=== PATIENT | male | born 1980 | race Caucasian/White ===

== ENCOUNTER → 2020-11-29 14:06 | Outpatient (BNVA) | payer SELFPAY | PROVIDERS: PCP Hospitalist; Visit Provider Physician Assistant | DX: Z02.79 Encounter for issue of other medical certificate (principal) ==

== ENCOUNTER 2021-11-12 11:44 | Outpatient (REF) | payer BC, SELFPAY ==
--- NOTE | ~2021-11-12 | XR_ITS ---
EXAMINATION: XR ankle LT 2V CLINICAL INFORMATION: Reason for Exam S99.912A - Unspecified injury of left ankle, initial encounter COMPARISON: None. TECHNIQUE: AP, lateral, and oblique views of the ankle XR/XR ankle LT 2V FINDINGS/IMPRESSION: * Marked soft tissue swelling overlying the lateral malleolus with 2 punctate osseous fragments adjacent to the lateral malleolus possibly reflecting sequelae of lateral malleolus avulsion fracture. * Moderate tibiotalar joint effusion. * Joint spaces are maintained without significant degenerative change.
== END 2021-11-12 11:45 | disposition home or self-care (01) ==
LOC: HO.HMGCX 11:44
PROVIDERS: PCP Hospitalist; Visit Provider Nurse Practitioner Acute Care
DX: S99.912A Unspecified injury of left ankle, initial encounter (principal); X58.XXXA Exposure to other specified factors, initial encounter; Y93.9 Activity, unspecified; Y92.9 Unspecified place or not applicable; Y99.9 Unspecified external cause status
CPT/HCPCS: 73600

== ENCOUNTER 2021-11-12 21:58 | Emergency (ER) | payer BC, SELFPAY ==
[2021-11-12 22:41] VITALS: BP 149/69; PULSE 61; RESP 17; TEMP 36.1; O2SAT 98; BMI 31.1
--- NOTE | 2021-11-12 23:21 | ED.LOWEXIN ---
HPI - Extremity Injury (Lower) General Chief Complaint: Extremity Injury, Lower Stated Complaint: left foot ligament damage and fractures Time Seen by Provider: 11/12/21 23:19 History of Present Illness HPI Narrative: 41-year-old male status post jumping off a trailer subsequently injuring left ankle. Patient was seen at urgent care at 12:30 today x-ray was done. Patient is sent in for further evaluation of fractures. No fever no chills no nausea no vomiting no head injury no neck injury no chest pain or shortness of breath no knee pain. Pain localized over the left ankle. Patient from home. He is on no medication. Related Data Home Medications Medication Instructions Recorded Confirmed No Known Home Meds 11/12/21 Previous Rx's Medication Instructions Recorded ibuprofen 800 mg tablet 800 mg PO Q8H PRN pain #20 tabs 11/12/21 Allergies Allergy/AdvReac Type Severity Reaction Status Date / Time ENVIRONMENTAL Allergy Unknown NONE Uncoded 11/12/21 11:32 Review of Systems Review of Systems: Positive pain to the left ankle No systemic complaints No fever no chills No head injury Yes all other systems are reviewed and are negative [facility] Past Medical History Attestation statement: The following information was validated with the patient. Social History Social History Advance Directives: No Physical Exam Vital Signs: Vital Signs: Last Vital Signs Temp 96.9 F 11/12/21 22:41 Pulse 61 11/12/21 22:41 Resp 17 11/12/21 22:41 BP 149/69 H 11/12/21 22:41 Pulse Ox 98 11/12/21 22:41 O2 Del Method 11/12/21 22:41 BMI result Body Mass Index 31.1 Appearance: Alert. Oriented X3. No acute distress. Eyes: Pupils equal, round and reactive to light. ENT: Pharynx normal. Neck: Normal inspection. Neck supple. No lymph nodes noted. No crepitus CVS: Normal heart rate and rhythm. Pulses normal. Normal S1 and S2 Respiratory: No respiratory distress. Breath sounds normal. No Wheezing. No rales Abdomen: Soft and nontender. No rigidity. No distention. good BS x4 Skin: Skin warm and dry. Normal skin color. Normal skin turgor. Extremities: Positive edema to the left ankle. Pain on palpation of the posterior aspect of the lateral malleolus. Distal pulses intact. Sensation intact. Skin intact. Moving toes perfectly. Neuro: Oriented X 3. No motor deficit. No sensory deficit. Moving all extermities. No slurred speech MDM - Extremity Injury (Lower) MDM Narrative Medical decision making narrative: Positive 2 small avulsion fracture noted in the ankle at the left malleolus. Will place patient in a boot. We will go ahead and give crutches for comfort. Follow-up with orthopedic on an outpatient basis. Patient's case discussed with orthopedics. Medical Records Attestation: I reviewed the patient's medical records. Lab Data Attestation: I reviewed the patient's lab results. Discharge Plan Discharge Clinical Impression: Ankle fracture Patient Disposition: Home, Self-Care Prescriptions: No Action No Known Home Meds ibuprofen 800 mg tablet 800 mg PO Q8H PRN (Reason: pain) Qty: 20 0RF Referrals: Asad Willingham MD [Physician] -
== END 2021-11-13 00:03 | disposition home or self-care (01) ==
PROVIDERS: Emergency Provider Emergency Medicine Emergency Medical Services
DX: S82.65XA Nondisplaced fracture of lateral malleolus of left fibula, initial encounter for closed fracture (principal); Y93.39 Activity, other involving climbing, rappelling and jumping off; Y93.9 Activity, unspecified; Y92.818 Other transport vehicle as the place of occurrence of the external cause; Y99.9 Unspecified external cause status
CPT/HCPCS: 99283; 99284

== ENCOUNTER 2021-12-12 07:09 | Outpatient (REF) | payer BC, SELFPAY ==
--- NOTE | ~2021-12-12 | XR_ITS ---
EXAMINATION: XR ANKLE, LEFT CLINICAL INFORMATION: Pain status-post injury. COMPARISON: Prior radiographs, most recently 11/12/2021. TECHNIQUE: AP, lateral, and mortise views of the left ankle. FINDINGS: Bony alignment and mineralization are normal. The ankle mortise is intact. There is no fracture, dislocation or left ankle joint effusion. Boehler's angle is normal. There is no calcaneal spur. There is soft tissue swelling, most pronounced anteriorly and laterally. No foreign body is seen. XR/XR ankle LT min 3V IMPRESSION: No fracture, dislocation or left ankle joint effusion is seen. There is soft tissue swelling, as detailed.
== END 2021-12-12 07:10 | disposition home or self-care (01) ==
LOC: HO.HOSX 07:09
PROVIDERS: Visit Provider Physician Assistant
DX: M25.572 Pain in left ankle and joints of left foot (principal)
CPT/HCPCS: 73610

== ENCOUNTER 2021-12-23 10:45 | Outpatient (RCR) | payer BC, SELFPAY ==
--- NOTE | 2021-12-23 15:46 | MHC.PT.EP ---
[facility] [place] Office [place] Office [place] Office [address]avar[address] [phone] F: [phone] F: [phone] F: [phone] F: [phone] Physical Therapy Plan of Care Date of Evaluation: Date of Surgery: Diagnosis: L ankle sprain. Assessment: Pt is a 41 y/o male referred to PT for eval and treat of L ankle sprain resulting in decreased tolerance and ability for walking long distances without brace, descending stairs, running and jogging, secondary to decreased L ankle ROm and strength, decreased balance, healing process for lateral ankle sprain, and pain. Pt is deemed an appropriate candidate to receive skilled PT in order to address his physical limitations to improve his functional ability. Frequency and Duration: The patient will be seen 2 x/wk x 8 wks. Short Term Goals: initiate HEP. Descends stairs w/o compensation. 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 In 8 weeks Pt will be able to jog 5 min with managed Sx; initial: unable. Improve L ankle eversion MMT by at least 1/2 MMT grade; initial: 4/5 with pain. Pt will be able to walk 1 mile without difficulty. Treatment Plan: Modalities to reduce pain, spasms and effusion. Manual therapy to restore motion and function. Therapeutic exercise to improve strength and flexibility. Neuromuscular re-education for posture and balance. Therapeutic activities to return to functional activities of daily living. Electronically signed by: Sean Zavala PT. Please sign and return to therapist. Thank you for your referral.
--- NOTE | 2022-01-25 15:46 | MHC.PT.DC ---
[facility] [place] Office [place] Office [place] Office [address] Marilou Chavarria [address] [phone] F: [phone] F: [phone] F: [phone] F: [phone] Physical Therapy Discharge Report Diagnosis: L ankle sprain. Date of Surgery: Date of Evaluation: 12/23/21 Date of Discharge: 01/25/22 Treatments to Date: 1 Cancellations to Date: No Shows to Date: Discharge Status: Patient Elected to Stop Visit Non-compliance Discharge Summary: Electronically signed by: Sean Zavala PT. Please sign and return to therapist. Thank you for your referral.
== END 2022-01-25 15:45 | disposition home or self-care (01) ==
LOC: HO.PTCHIC 10:45
PROVIDERS: PCP Hospitalist; Visit Provider Physician Assistant
DX: S93.402A Sprain of unspecified ligament of left ankle, initial encounter (principal)
CPT/HCPCS: 97110; 97161

== ENCOUNTER 2022-11-14 15:49 | Emergency (ER) | payer OTHER, SELFPAY ==
[2022-11-14 16:52] VITALS: BP 131/81; PULSE 68; RESP 18; TEMP 37; O2SAT 96; BMI 27.8
--- NOTE | 2022-11-14 16:52 | ED.UPPEXIN ---
HPI - Extremity Injury (Upper) General Chief Complaint: Wound/Laceration Stated Complaint: needs stitches, R thumb lac. sent from Time Seen by Provider: 11/14/22 18:50 Source: patient Mode of arrival: ambulatory Limitations: no limitations History of Present Illness HPI narrative: Patient is a right hand dominant 42-year-old male presenting to the emergency department with laceration to right thumb. He reports cutting his thumb on a metal barrel earlier today. He feels his tetanus is up to date as he is in the , but is unsure of date of last tetanus vaccine. He initially went to urgent care but was referred here. He denies any decreased range of motion to thumb, denies any numbness or tingling to thumb. He denies any other injuries. complaint: injury to: right Onset (ago): hour(s) Other Extremity Injury: right: fingers (thumb) Other injuries: none Handedness: right Place: home Severity: moderate Relieving factors: rest Exacerbating factors: movement of extremity Context: laceration Associated symptoms: denies other symptoms Treatments prior to arrival: bandage Related Data Previous Rx's Medication Instructions Recorded ibuprofen 800 mg tablet 800 mg PO Q8H PRN pain #20 tabs 11/12/21 cephalexin 500 mg capsule 500 mg PO QID #20 caps 11/14/22 Allergies Allergy/AdvReac Type Severity Reaction Status Date / Time ENVIRONMENTAL Allergy Unknown NONE Uncoded 12/12/21 09:35 Review of Systems Review of Systems: As per HPI. 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 Blood pressure normal. Heart rate normal. Respiratory rate normal. Temperature normal. Oxygen saturation normal. Const: General: cooperative, healthy appearing and no acute distress Orientation/consciousness: oriented to person, oriented to place, oriented to time and patient oriented x3 Limitations: no limitations HEENT: Head: Yes normocephalic and Yes atraumatic Ears: external ears normal General nose exam: Normal external nose present Face and sinus: Yes face symmetric Mouth: oropharynx normal and moist mucous membranes Throat: Yes uvula midline Eyes: Pupils: Equal, round and reactive pupils present Neck: Neck: Yes normal visual inspection and Yes supple Resp: Effort & Inspection: normal respiratory effort and able to speak in complete sentences Auscultation: clear to auscultation bilaterally Cardio: Rate: regular rate Rhythm: regular rhythm Heart sounds: S1 normal heart sound present and S2 normal heart sound present GI: Palpation (GI): Soft to palpation and nontender Auscultation: normoactive bowel sounds Skin: General skin exam: elasticity normal and turgor normal Trauma: laceration right palmar thumb linear, L-shaped, superficial, motor nerve function intact and sensation intact Neuro: General: oriented to person, oriented to place, oriented to time, patient oriented x3, moves all extremities, no focal motor deficits and CN's II-XI intact bilaterally Cranial nerves: Yes Equal, round and reactive pupils present Cognition (Neuro): normal cognition Extrem: General: Yes full ROM Right upper extremity: Extremity exam: right hand Details: neuromotor exam normal, neurosensory exam normal, tendon exam normal, tenderness Location: of the thumb Location: on the palmar aspect and at the IP joint, vascular exam Details: radial pulse present and normal capillary refill, normal ROM of fingers and laceration thumb palmar aspect mid Psych: Mental Status: mental status grossly normal Affect: normal affect Thought process: Normal thought process present Course Course Course Narrative: RME: 42yo M c/o laceration to R thumb s/p cleaning metal can around 11AM, was sent in by . TDap UTD 2cm laceration to R thumb MCP Will need repair Full HPI, ROS and PE to be performed by primary ED provider. Medications Administered Discontinued Medications Generic Name Dose Route Start Last Admin Trade Name Freq PRN Reason Stop Dose Admin Diphtheria/Tetanus/Acell Pertussis 0.5 ml 11/14/22 19:02 11/14/22 19:05 Diphth,Pertus(Acell),Tet Adult 0.5 Ml Syringe IM 11/14/22 19:03 0.5 ml .ONCE ONE Administration Lidocaine HCl 5 ml 11/14/22 18:55 11/14/22 19:04 Lidocaine Hcl 1 % Mpf 5 Ml Vial INFILTRATI 11/14/22 18:56 5 ml ONCE ONE Administration Medical Decision Making Medical Decision Making MDM Narrative: Patient is a right hand dominant 42-year-old male presenting to the emergency department with laceration to right thumb. On exam patient has full ROM, full strength and sensation to right thumb, 3cm L-shaped laceration to palmar aspect of right thumb over IP joint without significant bleeding. Laceration repaired as per procedure note and patient tolerated well. Bacitraicin and dressing applied following lac repair as well as splint. Return precautions discussed at bedside, suture removal in 10-14 days. Tetanus updated. Given contamination, prescribed prophylactic cephalexin. Differential Diagnosis Differential Diagnoses: The differential diagnosis associated with the presentation includes laceration, tendon injury, ligament injury External Record Review External record reviewed: Inpatient record, Office record and Outpatient record Prescription Management I considered prescription management with: Antibiotic Procedures Laceration Laceration 1: Site: hand Side (If applicable): right Size (cm): 3 Description: linear (L-shaped, over IP joint on palmar surface) Depth: simple, single layer Local Anesthetic: lidocaine 1% Amount of anesthesia used (mL): 3 Pre-repair: wound explored, irrigated extensively and deep structures intact Skin layer closed with: other (prolene) Size (cm): 4-0 Number of sutures: 8 Technique: simple, interrupted Discharge Plan Discharge Clinical Impression: Laceration of right thumb Patient Disposition: Home, Self-Care Instructions: Laceration (DC) Additional Instructions: You have been evaluated in the emergency department today for a laceration to your thumb. Your laceration was repaired in the emergency department with sutures. Please keep the area surrounding the laceration clean and dry and keep dressing in place for the next 24 hours. After that please change the dressing and assess the wound daily. Keep the area out of direct sunlight for the next 6 months to help prevent scarring. You should have the sutures removed in 10-14 days. You are being prescribed antibiotics to prevent infection. Please take the full course of antibiotics as prescribed. Your tetanus vaccine was updated in the ED today. If you develop fever, redness, swelling at the site of your laceration, or thick yellow drainage please come back to the ER for a wound check. Prescriptions: New cephalexin 500 mg capsule 500 mg PO QID Qty: 20 0RF No Action ibuprofen 800 mg tablet 800 mg PO Q8H PRN (Reason: pain) Qty: 20 0RF Interventions: ED Discharge Assessment Last Done: 11/14/22 20:07 Discharge Date/Time: 11/14/22 20:07
[2022-11-14 18:49] VITALS: BP 139/82; PULSE 64; RESP 18; O2SAT 98
[2022-11-14] MEDS: Lidocaine HCl 1 % MPF 5 ML VIAL INFILTRATI (19:04)
[2022-11-14] MEDS: Diphth,Pertus(ACell),Tet Adult 0.5 ML SYRINGE IM (19:05)
== END 2022-11-14 20:07 | disposition home or self-care (01) ==
LOC: HO.ED 19:57
PROVIDERS: Emergency Provider Emergency Medicine; PCP Hospitalist
DX: S61.011A Laceration without foreign body of right thumb without damage to nail, initial encounter (principal); S60.311A Abrasion of right thumb, initial encounter; W26.9XXA Contact with unspecified sharp object(s), initial encounter; Y93.9 Activity, unspecified; Y92.9 Unspecified place or not applicable; Y99.9 Unspecified external cause status; Z23 Encounter for immunization
CPT/HCPCS: 12042; 90471; 90715; 99284

== ENCOUNTER → 2022-12-15 10:44 | Outpatient (BNVA) | payer SELFPAY | PROVIDERS: PCP Hospitalist; Visit Provider Physician Assistant | DX: Z02.79 Encounter for issue of other medical certificate (principal) ==

== ENCOUNTER 2024-03-28 12:14 | Outpatient (AMB) | payer BC, SELFPAY ==
[2024-03-28 12:58] VITALS: BP 140/90; PULSE 80; O2SAT 98
--- NOTE | 2024-03-28 12:58 | AM.OFFWIN_ITS ---
Intake Vital Signs 03/28/24 12:58 Weight 230 lb BP 140/90 H Blood Pressure Location Rt brachial Position Sitting Pulse 80 Pulse Source Pulse Oximeter Pulse Oximetry (%) 98 Oxygen Delivery Method Room Air Intake Visit Reasons: EP Inner Blister RT middle finger Intake Note: Patient here for blood blister on middle finger on right hand Patient Tobacco Use Status: Never used Tobacco Allergies ENVIRONMENTAL Allergy (Unknown, Uncoded 03/28/24 12:59) NONE HPI HPI Comments History of Present Illness Details Patient is a 43-year-old male complaining of his right middle finger having a blood blister under the nail and on the opposite side of his finger. He tells me that last night he got it caught in between a green it counter top and a piece of metal. He tells me that it did not cut his finger but he has a very painful blood blister in both places. He has not done anything to try to make it better. 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 Review of Systems Const All systems reviewed & are unremarkable except as noted in HPI and below Physical Exam Vital Signs: Last Vital Signs Pulse 80 03/28/24 12:58 BP 140/90 H 03/28/24 12:58 Pulse Ox 98 03/28/24 12:58 Oxygen Delivery Method Room Air 03/28/24 12:58 Const General: cooperative, healthy appearing, comfortable, no acute distress and well developed Orientation/consciousness: patient oriented x3 Limitations: no limitations HEENT Head: Yes normal to inspection Ears: hearing grossly normal bilaterally General nose exam: Normal external nose present Face and sinus: Yes normal facial exam Eyes General: appearance normal, both eyes and all related structures Neck Neck: Yes normal visual inspection and Yes full ROM Resp Effort & Inspection: normal respiratory effort and able to speak in complete sentences Skin General skin exam: no rashes or lesions noted Neuro General: patient oriented x3 Extrem Other: Right middle finger has a blood blister underneath the nailbed and on the ventral side of the middle phalynx Office Procedures I&D Drain Details: Cleaned with alcohol wipe, performed right middle finger nail trephination with good success. applied bacitracin and a Band-Aid. [id number] of blood under nail All charges added?: Procedure code (CPT) selection complete Assessment & Plan Assessment & Plan (1) Blood blister: Code(s): T14.8XXA - Other injury of unspecified body region, initial encounter Plan: Performed nail trephination on right middle finger with success, applied bacitracin and a Band-Aid and gave wound care instructions. Advised the other blood blister would get reabsorbed over the coming days and weeks. Plan See above Coding Level of Care Code New Pt Level 4 (82878) Diagnoses Blood blister T14.8XXA CPT Codes I&D Drain - DRAIN 7: [id number] of blood under nail ([id number])
== END 2024-03-28 13:27 | disposition home or self-care (01) ==
PROVIDERS: PCP Hospitalist; Visit Provider Physician Assistant
DX: S60.031A Contusion of right middle finger without damage to nail, initial encounter (principal); T14.8XXA Other injury of unspecified body region, initial encounter

== ENCOUNTER → 2024-03-28 12:14 | Outpatient (BNVA) | payer BC, SELFPAY | PROVIDERS: PCP Hospitalist | DX: S60.422A Blister (nonthermal) of right middle finger, initial encounter (principal); W23.2XXA Caught, crushed, jammed or pinched between a moving and stationary object, initial encounter; Y93.9 Activity, unspecified; Y92.9 Unspecified place or not applicable; Y99.9 Unspecified external cause status | CPT/HCPCS: 11740 ==

== ENCOUNTER 2024-05-11 03:25 | Emergency (ER) | payer BC, SELFPAY ==
--- NOTE | ~2024-05-11 | XR_ITS ---
EXAMINATION: XR RIBS, LEFT CLINICAL INFORMATION: Pain COMPARISON: November 08, 2015. TECHNIQUE: 3 views of the left ribs were obtained. FINDINGS: Lungs are clear. No consolidation, pneumothorax, or pleural effusion. The cardiomediastinal silhouette and pulmonary vasculature are normal. Osseous structures are unremarkable. Ribs are intact. No fractures are identified. XR/XR ribs LT min 3V w CXR1V IMPRESSION: Unremarkable examination. Electronically signed by: Dante Frias MD 05/11/2024 06:40 AM [facility]
[2024-05-11 03:28] VITALS: BP 146/71; PULSE 71; RESP 20; TEMP 35.9; O2SAT 99; BMI 31.7
[2024-05-11] MEDS: Morphine Sulfate Immed Release 15 MG TABLET PO (05:06)
--- NOTE | 2024-05-11 06:15 | ED_ITS ---
HPI - General Adult General Chief complaint: General Medical Stated complaint: possible rib frac ? Time Seen by Provider: 05/11/24 04:46 Source: patient Mode of arrival: ambulatory Limitations: no limitations History of Present Illness ED Provider: HPI narrative: Patient otherwise healthy apparently 2 days ago was leaning to the back of his truck pressed his left lower ribs to the console since then been having pain in the lower ribs got worse today when he coughing feels increased pain on taking a deep breath no other injuries Related Data Previous Rx's ?Medication ?Instructions ?Recorded ibuprofen 800 mg tablet 800 mg PO Q8H PRN pain #20 tabs 11/12/21 ibuprofen 600 mg tablet 600 mg PO Q6H PRN fever or pain 05/11/24 #30 tabs oxycodone 5 mg tablet 5 mg PO Q6H PRN pain #20 tabs 05/11/24 Allergies Allergy/AdvReac Type Severity Reaction Status Date / Time ENVIRONMENTAL Allergy Unknown NONE Uncoded 05/11/24 03:30 Review of Systems Review of Systems: Yes all other systems are reviewed and are negative [facility] Social History Social History Patient Tobacco Use Status: Never used Tobacco Advance Directives: No Do you have a plan to hurt others: No Plan Current occupational status: employed 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 Oriented X3. No acute distress. Eyes: No pallor or icterus ENT: Pharynx normal. Oral Mucosa moist Neck: Normal inspection. Neck supple. CVS: Normal heart rate and rhythm. Pulses normal. Respiratory: No respiratory distress. Equal air entry bilateral, no wheezing/rales/rhonchi tenderness left 7th rib with midclavicular line no crepitation no deformity Abdomen: Soft and nontender. Bowel sounds are present, no mass palpable, no CVA tenderness Skin: Skin warm and dry. Normal skin color. Normal skin turgor. Extremities: No lower extremity edema. No calf tenderness Neuro: Oriented X 3. Medications Administered Discontinued Medications Generic Name Dose Route Start Last Admin Trade Name Edmar PRN Reason Stop Dose Admin Morphine Sulfate 15 mg 05/11/24 04:59 05/11/24 05:06 Morphine Sulfate Immed Release 15 Mg Tablet PO 05/11/24 05:00 15 mg ONCE ONE Administration Medical Decision Making Medical Decision Making [facility] Narrative: Patient is clinically lower rib fracture rib x-ray was negative for any fracture possible contusion lungs were clear Independent Interpretation I performed an independent interpretation of an: Plain X-Ray Radiology Impression Discussion of test interpretation with radiology: I have reviewed the radiologist's reading. Radiologist Impression: [address] [address] XRay Report Signed Patient: Souleymane Gastelum II MR#: [id number] : 1980 Acct:[id number] Age/Sex: 44 / M ADM Date: 05/11/24 Loc: HO.ED Attending Dr: Ordering Physician: Jules Mccullough MD Date of Service: 05/11/24 Procedure(s): XR ribs LT min 3V w CXR1V Accession Number(s): [id number] cc: Physician,Unknown ; Jules Mccullough MD~ EXAMINATION: XR RIBS, LEFT CLINICAL INFORMATION: Pain COMPARISON: November 08, 2015. TECHNIQUE: 3 views of the left ribs were obtained. FINDINGS: Lungs are clear. No consolidation, pneumothorax, or pleural effusion. The cardiomediastinal silhouette and pulmonary vasculature are normal. Osseous structures are unremarkable. Ribs are intact. No fractures are identified. XR/XR ribs LT min 3V w CXR1V IMPRESSION: Unremarkable examination. Electronically signed by: Dante Frias MD 05/11/2024 06:40 [place] [facility] [place] By: Dante Frias MD Signed By: <Electronically signed by Dante Frias MD in OV> 05/11/24 0640 Discharge Plan Discharge Clinical Impression: Left rib fracture Patient Disposition: Home, Self-Care Instructions: Rib Fracture (ED) Additional Instructions: Take Tylenol/Motrin for pain Oxycodone for severe pain Likely you have single rib fracture on the left side Report to the ER if increased shortness a breath or pain Prescriptions: New ibuprofen 600 mg tablet 600 mg PO Q6H PRN (Reason: fever or pain) Qty: 30 0RF oxycodone 5 mg tablet 5 mg PO Q6H PRN (Reason: pain) Qty: 20 0RF Rx Instructions: Partial Fill upon patient request. No Action ibuprofen 800 mg tablet 800 mg PO Q8H PRN (Reason: pain) Qty: 20 0RF Interventions: ED Discharge Assessment Last Done: 05/11/24 06:30 Discharge Date/Time: 05/11/24 06:31 Print Language: Georgian
[2024-05-11 06:29] VITALS: BP 112/58; PULSE 52; RESP 14; TEMP 36.5; O2SAT 96
[2024-05-11 06:30] VITALS: BP 112/58; PULSE 52; RESP 14; TEMP 36.5; O2SAT 96
--- OUTSIDE RECORDS SUMMARY | 2024-05-14 11:59 | XMS_ITS | Continuity of Care Document ---
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 It does not include entries that were removed or entered in error. Problem Status Onset Date Problem Type Date of Resolution Comments Source Sensorineural hearing loss, bilateral Active Condition DoD Immunizations Combined list of available immunizations from the Department of Defense and Veterans Affairs facilities. Immunization Series Date Given Administered By Site Reaction Lot Number CVX Code Drug Strategic Alliances Manager Status Comments Source influenza, injectable, quadrivalent- pf 2021 [id number] GlaxoSmithKli ne complet ed influenza , injectabl e, quadrival ent-pf 03/19/22 Given Ambulat ory Pharmac y influenza, injectable, quadrivalent- pf 2020 [id number] 150 GlaxoSmithKli ne complet ed influenza , injectabl e, quadrival ent-pf 05/16/21 Given Ambulat ory Pharmac y COVID Vaccine Moderna 2020 [id number] complet ed COVID Vaccine Moderna 07/30/20 Given Ambulat ory Pharmac y SARS-COV-2 (COVID-19) vaccine, mRNA, spike protein, LNP, preservative free, 100 mcg or 50 mcg dose 2 2020 [id number] 207 Moderna US, Inc. (MOD) complet ed SARS-COV- 2 (COVID-19 ) vaccine, mRNA, spike protein, LNP, preservat arina free, 100 mcg or [address] [facility] COVID Vaccine Moderna 2020 [id number] 207 complet ed COVID Vaccine Moderna 06/29/20 Given Ambulat ory Pharmac y SARS-COV-2 (COVID-19) vaccine, mRNA, spike protein, LNP, preservative free, 100 mcg or 50 mcg dose 1 2020 [id number] 207 Moderna US, Inc. (MOD) complet ed SARS-COV- 2 (COVID-19 ) vaccine, mRNA, spike protein, LNP, preservat arina free, 100 mcg or 50 mcg dose DoD influenza, injectable, quadrivalent- pf 2019 [id number] 150 Seqirus complet ed influenza , injectabl e, quadrival ent-pf 04/11/20 Given Ambulat ory Pharmac y Influenza, injectable, quadrivalent, preservative free 0 2019 [id number] 150 Seqirus (SEQ) complet ed Influenza , injectabl e, quadrival ent, preservat arina free DoD influenza, injectable, quadrivalent- pf 2018 [id number] 150 Seqirus complet ed influenza , injectabl e, quadrival ent-pf 05/10/19 Given Ambulat ory Pharmac y Influenza, injectable, quadrivalent, preservative free 0 2018 [id number] 150 Seqirus (SEQ) complet ed Influenza , injectabl e, quadrival ent, preservat arina free DoD measles/mumps /rubella virus vaccine 2018 [id number] Merck & Company Inc complet ed measles/m umps/rube lla virus vaccine 11/09/18 Given Ambulat ory Pharmac y typhoid Vi capsular polysaccharid e vac 2018 [id number] 101 sanofi pasteur complet ed typhoid Vi capsular polysacch aride vac 11/09/18 Given Ambulat ory Pharmac y measles, mumps and rubella virus vaccine 1 2018 [id number] 03 Merck (MSD) complet ed measles, mumps and rubella virus vaccine DoD typhoid Vi capsular polysaccharid e vaccine 4 2018 [id number] 101 Sanofi Pasteur (PMC) complet ed typhoid Vi capsular polysacch aride vaccine DoD influenza, seasonal, injectable 2018 [id number] 141 sanofi pasteur complet ed influenza , seasonal, injectabl e 07/10/18 Given Ambulat ory Pharmac y Influenza, seasonal, injectable 1 2018 [id number] 141 Sanofi Pasteur (PMC) complet ed Influenza , seasonal, injectabl e DoD Influenza, inj, MDCK, quadrivalent- pf 2016 [id number] 171 Seqirus complet ed Influenza , inj, MDCK, quadrival ent-pf 05/04/17 Given Ambulat ory Pharmac y Influenza, injectable, Madin Eden Canine Kidney, preservative free, quadrivalent 17 2016 [id number] 171 Seqirus (SEQ) comple t ed Influenza , injectabl e, Madin Eden Canine Kidney, preservat arina free, quadrival ent DoD influenza virus vaccine, unspecified 2015 [id number] 88 complet ed influenza virus vaccine, unspecifi ed 04/09/16 Given Ambulat ory Pharmac y influenza virus vaccine, unspecified formulation 1 2015 88 Transcribed (TRS) complet ed influenza virus vaccine, unspecifi ed formulati on DoD influenza, seasonal, injectable 2014 [id number] 141 complet ed influenza , seasonal, injectabl e 03/04/15 Given Ambulat ory Pharmac y Influenza, seasonal, injectable 1 2014 [id number] 141 Transcribed (TRS) complet ed Influenza , seasonal, injectabl e DoD Influenza, injectable, MDCK-pf 2013 [id number] 153 Novartis Pharmaceutica ls complet ed Influenza , injectabl e, MDCK-pf 03/08/14 Given Ambulat ory Pharmac y Influenza, injectable, Madin Geetha Canine Kidney, preservative free 0 2013 [id number] 153 Novartis Pharmaceutica l Jacob. (NOV) complet ed Influenza , injectabl e, Madin Eden Canine Kidney, preservat arina free DoD influenza, seasonal, injectable-pf 2012 [id number] 140 CSL Behring complet ed influenza , seasonal, injectabl e-pf 02/26/13 Given Ambulat ory Pharmac y Influenza, seasonal, injectable, preservative free 1 2012 [id number] [id number] 140 [employer] Inc. (CS) complet ed Influenza , seasonal, injectabl e, preservat arina free DoD tetanus, diphtheria, acellular pertu is 2011 [id number] 115 sanofi pasteur complet ed tetanus, diphtheri a, acellular pertussis 04/07/12 Given Ambulat ory Pharmac y influenza, seasonal, injectable-pf 2011 [id number] 140 CSL Behring complet ed influenza , seasonal, injectabl e-pf 04/07/12 Given Ambulat ory Pharmac y tetanus toxoid, reduced diphtheria toxoid, and acellular pertu is vaccine, adsorbed 0 2011 [id number] 115 Sanofi Pasteur (PMC) complet ed tetanus toxoid, reduced diphtheri a toxoid, and acellular pertussis vaccine, adsorbed DoD Influenza, seasonal, injectable, preservative free 13 2011 [id number] 140 [facility] Finding [employer] Inc. (CSL) complet ed Influenza , seasonal, injectabl e, preservat arina free DoD influenza, seasonal, injectable-pf 2011 [id number] [id number] 140 CSL Behring complet ed influenza , seasonal, injectabl e-pf 06/11/11 Given Ambulat ory Pharmac y Influenza, seasonal, injectable, preservative free 0 2011 [id number] 140 [facility] [employer] (CSL) complet ed Influenza , seasonal, injectabl e, preservat arina free DoD influenza virus vaccine,split 2009 [id number] 15 [facility] complet ed influenza virus vaccine,s plit 05/10/10 Given Ambulat ory Pharmac y influenza virus vaccine, split virus (incl. purified surface antigen)-reti red CODE 2 2009 [id number] 15 [facility] complet ed influenza virus vaccine, split virus (incl. purified surface antigen)- retired CODE DoD Novel influenza-H1N 1-09, injectable 2009 [id number] 127 Novartis Pharmaceutica complet ed Novel influenza -Q5C7-13, injectabl e 06/27/09 Given Ambulat ory Pharmac y Novel influenza-H1N 1-09, injectable 1 2009 [id number] 1 127 Novartis Pharmaceutica l Jacob. (NOV) complet ed Novel influenza -N9Z3-90, injectabl e DoD influenza virus vaccine, live 2008 [id number] 111 [employer] comple t ed influenza virus vaccine, live 03/06/09 Given Ambulat ory Pharmac y influenza virus vaccine, live, attenuated, for intranasal use 1 2008 [id number] 111 [employer] (MED) complet ed influenza virus vaccine, live, attenuate d, for intranasa l use DoD influenza virus vaccine,split 2007 [id number] 15 GlaxoSmithKli tn complet ed influenza virus vaccine,s plit 04/05/08 Given Ambulat ory Pharmac y influenza virus vaccine, split virus (incl. purified surface antigen)-reti red CODE 1 2007 [id number] 15 [employer] ([facility]) complet ed influenza virus vaccine, split virus (incl. purified surface antigen)- retired CODE DoD typhoid Vi capsular polysaccharid e vac 2007 [id number] 2 101 sanofi pasteur complet ed typhoid Vi capsular polysacch aride vac 03/08/08 Given Ambulat ory Pharmac y typhoid Vi capsular polysaccharid e vaccine 1 2007 [id number] 2 101 Sanofi Pasteur ([facility]) complet ed typhoid Vi capsular polysacch aride vaccine DoD influenza virus vaccine,split 2006 [id number] 15 [employer] tn complet ed influenza virus vaccine,s plit 05/04/07 Given Ambulat ory Pharmac y influenza virus vaccine, split virus (incl. purified surface antigen)-reti red CODE 1 2006 [id number] 15 [employer] ([facility]) complet ed influenza virus vaccine, split virus (incl. purified surface antigen)- retired CODE DoD influenza virus vaccine,split 2005 [id number] 15 Unknown complet ed influenza virus vaccine,s plit 05/06/06 Given Ambulat ory Pharmac y influenza virus vaccine, split virus (incl. purified surface antigen)-reti red CODE 1 2005 [id number] 15 Other (OTH) complet ed influenza virus vaccine, split virus (incl. purified surface antigen)- retired CODE DoD influenza virus vaccine,split 2005 [id number] 15 Unknown complet ed influenza virus vaccine,s plit 05/05/06 Given Ambulat ory Pharmac y influenza virus vaccine, split virus (incl. purified surface antigen)-reti red CODE 1 2005 [id number] 15 Other (OTH) complet ed influenza virus vaccine, split virus (incl. purified surface antigen)- retired CODE DoD typhoid vaccine, parenteral 2005 [id number] 41 sanofi pasteur complet ed typhoid vaccine, parentera l 08/05/05 Given Ambulat ory Pharmac y typhoid vaccine, parenteral, other than acetone-kille d, dried 1 2005 [id number] 41 Sanofi Pasteur ([facility]) complet ed typhoid vaccine, parentera l, other than acetone-k illed, dried DoD influenza virus vaccine,split 2004 [id number] 15 sanofi pasteur complet ed influenza virus vaccine,s plit 04/11/05 Given Ambulat ory Pharmac y influenza virus vaccine, split virus (incl. purified surface antigen)-reti red CODE 1 2004 [id number] 15 Sanofi Pasteur (PMC) complet ed influenza virus vaccine, split virus (incl. purified surface antigen)- retired CODE DoD influenza virus vaccine, live 2004 [id number] 111 [id number] comple t ed influenza virus vaccine, live 06/14/04 Given Ambulat ory Pharmac y influenza virus vaccine, live, attenuated, for intranasal use 0 2004 [id number] 111 [employer] (MED) complet ed influenza virus vaccine, live, attenuate d, for intranasa l use DoD hepatitis B adult vaccine 2003 [id number] 43 GlaxoSmithKli ne complet ed hepatitis B adult vaccine 11/18/03 Given Ambulat ory Pharmac y hepatitis B vaccine, adult dosage 3 2003 [id number] 43 SmithKline (SKB) complet ed hepatitis B vaccine, adult dosage DoD hepatitis B adult vaccine 2002 [id number] 43 GlaxoSmithKli ne complet ed hepatitis B adult vaccine 05/13/03 Given Ambulat ory Pharmac y tuberculin purified protein derivative 2002 [id number] 96 sanofi pasteur complet ed tuberculi n purified protein derivativ e 05/13/03 Given Ambulat ory Pharmac y hepatitis B vaccine, adult dosage 2 2002 [id number] A4 43 SmithKline (SKB) complet ed hepatitis B vaccine, adult dosage DoD influenza virus vaccine, whole virus 2002 [id number] 16 sanofi pasteur complet ed influenza virus vaccine, whole virus 04/18/03 Given Ambulat ory Pharmac y influenza virus vaccine, whole virus 0 2002 [id number] 16 Sanofi Pasteur ([facility]) complet ed influenza virus vaccine, whole virus DoD hepatitis B adult vaccine 2002 [id number] A4 43 GlaxoSmithKli ne complet ed hepatitis B adult vaccine 03/10/03 Given Ambulat ory Pharmac y hepatitis B vaccine, adult dosage 1 2002 [id number] A4 43 SmithKline (SKB) complet ed hepatitis B vaccine, adult dosage DoD typhoid vaccine, parenteral 2002 [id number] 41 sanofi pasteur complet ed typhoid vaccine, parentera l 07/23/02 Given Ambulat ory Pharmac y hepatitis A adult vaccine 2002 [id number] 52 Merck & Company Inc complet ed hepatitis A adult vaccine 07/23/02 Given Ambulat ory Pharmac y tetanus-dipht h toxoids (Td) adult/adol 2002 [id number] 09 sanofi pasteur complet ed tetanus-d iphth toxoids (Td) adult/ado l 07/23/02 Given Ambulat ory Pharmac y tetanus and diphtheria toxoids, adsorbed, preservative free, for adult use (2 Lf of tetanus toxoid and 2 Lf of diphtheria toxoid) 0 2002 [id number] 09 Sanofi Pasteur ([facility]) complet ed tetanus and diphtheri a toxoids, adsorbed, preservat arina free, for adult use (2 Lf of tetanus toxoid and 2 Lf of diphtheri a toxoid) DoD typhoid vaccine, parenteral, other than acetone-kille d, dried 0 2002 [id number] 41 Sanofi Pasteur ([facility]) complet ed typhoid vaccine, parentera l, other than acetone-k illed, dried DoD hepatitis A vaccine, adult dosage 2 2002 [id number] 52 Merck (MSD) complet ed hepatitis A vaccine, adult dosage DoD influenza virus vaccine, whole virus 2001 [id number] 16 sanofi pasteur complet ed influenza virus vaccine, whole virus 05/10/02 Given Ambulat ory Pharmac y tuberculin purified protein derivative 2001 [id number] 96 sanofi pasteur complet ed tuberculi n purified protein derivativ e 05/10/02 Given Ambulat ory Pharmac y influenza virus vaccine, whole virus 0 2001 [id number] 16 Sanofi Pasteur (PMC) complet ed influenza virus vaccine, whole virus DoD varicella virus vaccine 2001 [id number] 21 Merck & Company Inc complet ed varicella virus vaccine 11/25/01 Given Ambulat ory Pharmac y varicella virus vaccine 2 2001 [id number] 21 Merck (MSD) complet ed varicella virus vaccine DoD varicella virus vaccine 2001 [id number] 21 Merck & Company Inc complet ed varicella virus vaccine 10/25/01 Given Ambulat ory Pharmac y varicella virus vaccine 1 2001 [id number] 21 Merck (MSD) complet ed varicella virus vaccine DoD influenza virus vaccine, whole virus 2001 [id number] 16 sanofi pasteur complet ed influenza virus vaccine, whole virus 10/18/01 Given Ambulat ory Pharmac y meningococcal polysaccharid e (MPSV4) 2001 [id number] 32 sanofi pasteur complet ed meningoco ccal polysacch aride (MPSV4) 10/18/01 Given Ambulat ory Pharmac y poliovirus vaccine, inactivated 2001 [id number] 10 sanofi pasteur complet ed polioviru s vaccine, inactivat ed 10/18/01 Given Ambulat ory Pharmac y hepatitis A adult vaccine 2001 [id number] 52 GlaxoSmithKli ne complet ed hepatitis A adult vaccine 10/18/01 Given Ambulat ory Pharmac y tuberculin purified protein derivative 2001 [id number] 96 sanofi pasteur complet ed tuberculi n purified protein derivativ e 10/18/01 Given Ambulat ory Pharmac y measles, mumps and rubella virus vaccine 0 2001 03 () Not Given measles, mumps and rubella virus vaccine DoD poliovirus vaccine, inactivated 0 2001 [id number] 10 Sanofi Pasteur (PMC) complet ed polioviru s vaccine, inactivat ed DoD influenza virus vaccine, whole virus 0 2001 [id number] 16 Sanofi Pasteur (PMC) complet ed influenza virus vaccine, whole virus DoD meningococcal polysaccharid e vaccine (MPSV4) 0 2001 [id number] 32 Sanofi Pasteur (PMC) complet ed meningoco ccal polysacch aride vaccine (MPSV4) DoD hepatitis A vaccine, adult dosage 1 2001 [id number] 52 Chroma TherapeuticsKline (SKB) complet ed hepatitis A vaccine, adult dosage DoD Vital Signs Combined list of inpatient and outpatient Vital Signs from Department of Defense and Veterans Affairs, ranging from 12 months to all on record, depending upon the facility. Vital Sign Value Date Comments Source No data available for this section Ambulatory Pharmacy Encounters Combined list of: 1) Encounters from Department of Veterans Affairs facilities going back up to thelast 18 months. 2) Encounters from the Department of Defense facilities going back up to 280 months. Location Location Details Encounter Type Encounter Number Reason For Visit Attending Provider ADM Date DC Date Status Disposition Source [facility](ZZZ Ncirlik_F HC_Team A) OUTPATIENT [id number] R hand middle finger injury, swollen ,painfu l STARR MÁRQUEZ 01/27 Released w/o Limitations [facility](Z ZZNcirl ik_FHC_ Team A) [facility](Inc irlik Flt Med Team A) OUTPATIENT [id number] Notes Entered by: Ronda ARCINIEGA 11 Feb 2019 1555 ------- ------- ------- ------- -- DHRA2 CHIRAG BLANCO 02/11 Released w/o Limitations [facility](I ncirlik Flt Med Team A) [facility]ly [facility] OUTPATIENT [id number] GLORIA Gay TWO FAILED TEST WILMA SCHMID 02/14 Released w/o Limitations [facility]( [facility]) Procedures Combined list of: 1) Procedures from Department of Veterans Affairs facilities going back up to thelast 18 months, not all [place] non-surgical procedures are included; 2) All procedures from the Department of Defense facilities. Procedure Procedure Type Code Date Perfomer Comments Sour e TYMPANOMETRY AND REFLEX THRESHOLD MEASUREMENTS 02/15/[address] [facility] PHYS/OTH QUALIFIED HEALTH HOTEL DESK CLERK QUALIFIED,EDUCATIO N,TRAIN,LICENSURE/ REGULATION (WHEN APPLICABLE) EDUC SER RENDERED TO PATS IN A GRP SETTING (EG,,OBESI TY,OR DIABETIC INSTRUCT) 01/16/[address] [facility] ADMINISTRATION OF PATIENT-FOCUSED HEALTH RISK ASSESSMENT INSTRUMENT (EG, HEALTH HAZARD APPRAISAL) WITH SCORING AND DOCUMENTATION, PER STANDARDIZED INSTRUMENT 02/12/[address] [facility] Tympanometry With Reflex Threshold Measurements Tympanometry With Reflex Threshold Measurements [id number] WILMA SCHMID Normal ME function, Au [facility] Comprehensive Audiometry Comprehensive Audiometry [id number] [facility] Preventive Medicine Administration Of Health Risk Questionnaire Patient-Focused Preventive Medicine Administration Of Health Risk Questionnaire Patient-Focused [id number] [facility] No data available for this section Ambulato ry Pharmacy Social History Combined list of available smoking, tobacco, and other social history from Department of Defense and Veterans Affairs facilities. Social History Type Response Date Comment Sourc e This section is an empty social history section. DoD Assessment and Plan Combined list of future care activities from Department of Defense and Veterans Affairs facilities (e.g., assessment and plan notes, appointments, orders, and referrals). Additional future care activities may be listed in the Plan of Care section. Result Assessment and Plan Date Source Assessment and Plan No data available for this section 05/14/2024 Ambulatory Pharmacy Functional Status Combined list of recent functional and cognitive assessments recorded at Department of Defense and Veterans Affairs (VA).[facility] Functional [place] Measurement (FIM) Scale: 1 = Total Assistance (Subject = 0% +), 2 = Maximal Assistance (Subject = 25% +), 3 = Moderate Assistance (Subject = 50% +), 4 = Minimal Assistance (Subject = 75% +), 5 = Supervision, 6 = Modified [place] (Device), 7 = Complete [place] (Timely, Safely). Assessment Date/Time Source Assessment Type Assessment Skill Assessment Score Assessment Details No data available for this section
--- OUTSIDE RECORDS SUMMARY | 2024-05-14 12:02 | XMS_ITS | Continuity of Care Document ---
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 (MOD) complet ed SARS-COV- 2 (COVID-19 ) vaccine, mRNA, spike protein, LNP, preservat arina free, 100 mcg or 50 mcg dose [facility] COVID Vaccine Moderna 2020 [id number] complet ed COVID Vaccine Moderna 06/29/20 Given Ambulat ory Pharmac y SARS-COV-2 (COVID-19) vaccine, mRNA, spike protein, LNP, preservative free, 100 mcg or 50 mcg dose 1 2020 [id number] 207 Moderna US, Inc. (MOD) complet ed SARS-COV- 2 (COVID-19 ) vaccine, mRNA, spike protein, LNP, preservat arina free, 100 mcg or 50 mcg dose DoD influenza, injectable, quadrivalent- pf 2019 [id number] 150 Seqirus complet ed influenza , injectabl e, quadrival ent-pf 04/11/20 Given Ambulat ory Pharmac y Influenza, injectable, quadrivalent, preservative free 0 2019 [id number] 077 150 Seqirus (SEQ) complet ed Influenza , injectabl e, quadrival ent, preservat arina free DoD influenza, injectable, quadrivalent- pf 2018 [id number] 150 Seqirus complet ed influenza , injectabl e, quadrival ent-pf 05/10/19 Given Ambulat ory Pharmac y Influenza, injectable, quadrivalent, preservative free 0 2018 [id number] 346 150 Seqirus (SEQ) complet ed Influenza , injectabl e, quadrival ent, preservat arina free DoD measles/mumps /rubella virus vaccine 2018 [id number] Merck & Company Inc complet ed measles/m umps/rube lla virus vaccine 11/09/18 Given Ambulat ory Pharmac y typhoid Vi capsular polysaccharid e vac 2018 [id number] sanofi pasteur complet ed typhoid Vi capsular polysacch aride vac 11/09/18 Given Ambulat ory Pharmac y measles, mumps and rubella virus vaccine 1 2018 [id number] 03 Merck (MSD) complet ed measles, mumps and rubella virus vaccine DoD typhoid Vi capsular polysaccharid e vaccine 4 2018 [id number] 101 Sanofi Pasteur (PMC) complet ed typhoid Vi capsular polysacch aride vaccine DoD influenza, seasonal, injectable 2018 [id number] 141 sanofi pasteur complet ed influenza , seasonal, injectabl e 07/10/18 Given Ambulat ory Pharmac y Influenza, seasonal, injectable 1 2018 [id number] 141 Sanofi Pasteur (PMC) complet ed Influenza , seasonal, injectabl e DoD Influenza, inj, MDCK, quadrivalent- pf 2016 [id number] 171 Seqirus complet ed Influenza , inj, MDCK, quadrival ent-pf 05/04/17 Given Ambulat ory Pharmac y Influenza, injectable, Madin [place] Canine Kidney, preservative free, quadrivalent 17 2016 [id number] 171 Seqirus (SEQ) comple t ed Influenza , injectabl e, Madin [place] Canine Kidney, preservat arina free, quadrival ent DoD influenza virus vaccine, unspecified 2015 [id number] 88 complet ed influenza virus vaccine, unspecifi ed 04/09/16 Given Ambulat ory Pharmac y influenza virus vaccine, unspecified formulation 1 2015 88 Transcribed (TRS) complet ed influenza virus vaccine, unspecifi ed formulati on DoD influenza, seasonal, injectable 2014 [id number] 141 complet ed influenza , seasonal, injectabl e 03/04/15 Given Ambulat ory Pharmac y Influenza, seasonal, injectable 1 2014 [id number] 141 Transcribed (TRS) complet ed Influenza , seasonal, injectabl e DoD Influenza, injectable, MDCK-pf 2013 [id number] 153 Novartis Pharmaceutica ls complet ed Influenza , injectabl e, MDCK-pf 03/08/14 Given Ambulat ory Pharmac y Influenza, injectable, Madin Geetha Canine Kidney, preservative free 0 2013 [id number] 153 Novartis Pharmaceutica l Jacob. (NOV) complet ed Influenza , injectabl e, Madin [place] Canine Kidney, preservat arina free DoD influenza, seasonal, injectable-pf 2012 [id number] 140 CSL Behring complet ed influenza , seasonal, injectabl e-pf 02/26/13 Given Ambulat ory Pharmac y Influenza, seasonal, injectable, preservative free 1 2012 [id number] 11A 140 [employer]. (CS) complet ed Influenza , seasonal, injectabl e, preservat arina free DoD tetanus, diphtheria, acellular pertu is 2011 [id number] 115 sanofi pasteur complet ed tetanus, diphtheri a, acellular pertussis 04/07/12 Given Ambulat ory Pharmac y influenza, seasonal, injectable-pf 2011 [id number] 140 CSL Behring complet ed influenza , seasonal, injectabl e-pf 04/07/12 Given Ambulat ory Pharmac y tetanus toxoid, reduced diphtheria toxoid, and acellular pertu is vaccine, adsorbed 0 2011 [id number] 115 Sanofi Pasteur (PMC) complet ed tetanus toxoid, reduced diphtheri a toxoid, and acellular pertussis vaccine, adsorbed DoD Influenza, seasonal, injectable, preservative free 13 2011 [id number] 140 [facility] Neur[employer]on[employer]ies, Inc. (CSL) complet ed Influenza , seasonal, injectabl e, preservat arina free DoD influenza, seasonal, injectable-pf 2011 [id number] 1A 140 CSL Behring complet ed influenza , seasonal, injectabl e-pf 06/11/11 Given Ambulat ory Pharmac y Influenza, seasonal, injectable, preservative free 0 2011 [id number] 140 [facility] [employer]ies[employer] Inc. (CSL) complet ed Influenza , seasonal, injectabl e, preservat arina free DoD influenza virus vaccine,split [id number] [facility] complet ed influenza virus vaccine,s plit 05/10/10 Given Ambulat ory Pharmac y influenza virus vaccine, split virus (incl. purified surface antigen)-reti red CODE 2 [id number] [facility] complet ed influenza virus vaccine, split virus (incl. purified surface antigen)- retired CODE DoD Novel influenza-H1N 1-09, injectable 2009 [id number] 1 127 Novartis Pharmaceutica complet ed Novel influenza -U0D4-96, injectabl e 06/27/09 Given Ambulat ory Pharmac y Novel influenza-H1N 1-09, injectable 1 2009 [id number] 1 127 Novartis Pharmaceutica l Jacob. (NOV) complet ed Novel influenza -O6H1-96, injectabl e DoD influenza virus vaccine, live 2008 [id number] 111 [employer] comple t ed influenza virus vaccine, live 03/06/09 Given Ambulat ory Pharmac y influenza virus vaccine, live, attenuated, for intranasal use 1 2008 [id number] 111 [employer] (MED) complet ed influenza virus vaccine, live, attenuate d, for intranasa l use DoD influenza virus vaccine,split 2007 [id number] [address] complet ed influenza virus vaccine,s plit 04/05/08 Given Ambulat ory Pharmac y influenza virus vaccine, split virus (incl. purified surface antigen)-reti red CODE 1 2007 [id number] 2AA 15 [employer] ([facility]) complet ed influenza virus vaccine, split virus (incl. purified surface antigen)- retired CODE DoD typhoid Vi capsular polysaccharid e vac 2007 [id number] 101 sanofi pasteur complet ed typhoid Vi capsular polysacch aride vac 03/08/08 Given Ambulat ory Pharmac y typhoid Vi capsular polysaccharid e vaccine 1 2007 [id number] 2 101 Sanofi Pasteur ([facility]) complet ed typhoid Vi capsular polysacch aride vaccine DoD influenza virus vaccine,split 2006 [id number] 3AA [address] complet ed influenza virus vaccine,s plit 05/04/07 Given Ambulat ory Pharmac y influenza virus vaccine, split virus (incl. purified surface antigen)-reti red CODE 1 2006 [id number] 3AA 15 [employer] ([facility]) complet ed influenza virus vaccine, split virus (incl. purified surface antigen)- retired CODE DoD influenza virus vaccine,split 2005 [id number] 15 Unknown complet ed influenza virus vaccine,s plit 05/06/06 Given Ambulat ory Pharmac y influenza virus vaccine, split virus (incl. purified surface antigen)-reti red CODE 1 2005 [id number] 15 Other (OTH) complet ed influenza virus vaccine, split virus (incl. purified surface antigen)- retired CODE DoD influenza virus vaccine,split 2005 [id number] 15 Unknown complet ed influenza virus vaccine,s plit 05/05/06 Given Ambulat ory Pharmac y influenza virus vaccine, split virus (incl. purified surface antigen)-reti red CODE 1 2005 [id number] 15 Other (OTH) complet ed influenza virus vaccine, split virus (incl. purified surface antigen)- retired CODE DoD typhoid vaccine, parenteral 2005 [id number] 41 sanofi pasteur complet ed typhoid vaccine, parentera l 08/05/05 Given Ambulat ory Pharmac y typhoid vaccine, parenteral, other than acetone-kille d, dried 1 2005 [id number] 41 Sanofi Pasteur ([facility]) complet ed typhoid vaccine, parentera l, other than acetone-k illed, dried DoD influenza virus vaccine,split 2004 [id number] 15 sanofi pasteur complet ed influenza virus vaccine,s plit 04/11/05 Given Ambulat ory Pharmac y influenza virus vaccine, split virus (incl. purified surface antigen)-reti red CODE 1 2004 [id number] 15 Sanofi Pasteur (PMC) complet ed influenza virus vaccine, split virus (incl. purified surface antigen)- retired CODE DoD influenza virus vaccine, live 2004 [id number] 111 [employer] comple t ed influenza virus vaccine, live 06/14/04 Given Ambulat ory Pharmac y influenza virus vaccine, live, attenuated, for intranasal use 0 2004 [id number] 111 [employer] (MED) complet ed influenza virus vaccine, live, attenuate d, for intranasa l use DoD hepatitis B adult vaccine 2003 [id number] 43 GlaxoSmithKli ne complet ed hepatitis B adult vaccine 11/18/03 Given Ambulat ory Pharmac y hepatitis B vaccine, adult dosage 3 2003 [id number] 43 SmithKline (SKB) complet ed hepatitis B vaccine, adult dosage DoD hepatitis B adult vaccine 2002 [id number] 43 GlaxoSmithKli ne complet ed hepatitis B adult vaccine 05/13/03 Given Ambulat ory Pharmac y tuberculin purified protein derivative 2002 [id number] 96 sanofi pasteur complet ed tuberculi n purified protein derivativ e 05/13/03 Given Ambulat ory Pharmac y hepatitis B vaccine, adult dosage 2 2002 [id number] A4 43 SmithKline (SKB) complet ed hepatitis B vaccine, adult dosage DoD influenza virus vaccine, whole virus 2002 [id number] 16 sanofi pasteur complet ed influenza virus vaccine, whole virus 04/18/03 Given Ambulat ory Pharmac y influenza virus vaccine, whole virus 0 2002 [id number] 16 Sanofi Pasteur ([facility]) complet ed influenza virus vaccine, whole virus DoD hepatitis B adult vaccine 2002 [id number] A4 43 GlaxoSmithKli ne complet ed hepatitis B adult vaccine 03/10/03 Given Ambulat ory Pharmac y hepatitis B vaccine, adult dosage 1 2002 [id number] A4 43 SmithKline (SKB) complet ed hepatitis B vaccine, adult dosage DoD typhoid vaccine, parenteral 2002 [id number] 41 sanofi pasteur complet ed typhoid vaccine, parentera l 07/23/02 Given Ambulat ory Pharmac y hepatitis A adult vaccine 2002 [id number] 52 Merck & Company Inc complet ed hepatitis A adult vaccine 07/23/02 Given Ambulat ory Pharmac y tetanus-dipht h toxoids (Td) adult/adol 2002 [id number] 09 sanofi pasteur complet ed tetanus-d iphth toxoids (Td) adult/ado l 07/23/02 Given Ambulat ory Pharmac y tetanus and diphtheria toxoids, adsorbed, preservative free, for adult use (2 Lf of tetanus toxoid and 2 Lf of diphtheria toxoid) 0 2002 [id number] 09 Sanofi Pasteur ([facility]) complet ed tetanus and diphtheri a toxoids, adsorbed, preservat arina free, for adult use (2 Lf of tetanus toxoid and 2 Lf of diphtheri a toxoid) DoD typhoid vaccine, parenteral, other than acetone-kille d, dried 0 2002 [id number] 41 Sanofi Pasteur ([facility]) complet ed typhoid vaccine, parentera l, other than acetone-k illed, dried DoD hepatitis A vaccine, adult dosage 2 2002 [id number] 52 Merck (MSD) complet ed hepatitis A vaccine, adult dosage DoD influenza virus vaccine, whole virus 2001 [id number] 16 sanofi pasteur complet ed influenza virus vaccine, whole virus 05/10/02 Given Ambulat ory Pharmac y tuberculin purified protein derivative 2001 [id number] 96 sanofi pasteur complet ed tuberculi n purified protein derivativ e 05/10/02 Given Ambulat ory Pharmac y influenza virus vaccine, whole virus 0 2001 [id number] 16 Sanofi Pasteur (PMC) complet ed influenza [...] DoD influenza virus vaccine, whole virus 2001 [id number] 16 sanofi pasteur complet ed influenza virus vaccine, whole virus 10/18/01 Given Ambulat ory Pharmac y meningococcal polysaccharid e (MPSV4) 2001 [id number] 32 sanofi pasteur complet ed meningoco ccal polysacch aride (MPSV4) 10/18/01 Given Ambulat ory Pharmac y poliovirus vaccine, inactivated 2001 [id number] 10 sanofi pasteur complet ed polioviru s vaccine, inactivat ed 10/18/01 Given Ambulat ory Pharmac y hepatitis A adult vaccine 2001 [id number] 52 GlaxoSmithKli ne complet ed hepatitis A adult vaccine 10/18/01 Given Ambulat ory Pharmac y tuberculin purified protein derivative 2001 [id number] 96 sanofi pasteur complet ed tuberculi n purified protein derivativ e 10/18/01 Given Ambulat ory Pharmac y measles, mumps and rubella virus vaccine 0 2001 03 () Not Given measles, mumps and rubella virus vaccine DoD poliovirus vaccine, inactivated 0 2001 [id number] 10 Sanofi Pasteur (PMC) complet ed polioviru s vaccine, inactivat ed DoD influenza virus vaccine, whole virus 0 2001 [id number] 16 Sanofi Pasteur (PMC) complet ed influenza virus vaccine, whole virus DoD meningococcal polysaccharid e vaccine (MPSV4) 0 2001 [id number] 32 Sanofi Pasteur (PMC) complet ed meningoco ccal polysacch aride vaccine (MPSV4) DoD hepatitis A vaccine, adult dosage 1 2001 [id number] 6 52 Hammerhead SystemsKline (SKB) complet ed hepatitis A vaccine, adult [...] [employer](ZZZ Ncirlik_F HC_Team A) OUTPATIENT [id number] R hand middle finger injury, swollen ,painfu l STARR MÁRQUEZ 01/27 Released w/o Limitations [employer](Z ZZNcirl ik_FHC_ Team A) [employer](Inc irlik Flt Med Team A) OUTPATIENT [id number] Notes Entered by: Ronda ARCINIEGA 11 Feb 2019 1555 ------- ------- ------- ------- -- DHRA2 CHIRAG BLANCO 02/11 Released w/o Limitations [employer](I ncirlik Flt Med Team A) [facility] OUTPATIENT [id number] GLORIA Gay TWO FAILED TEST WILMA SCHMID 02/14 Released w/o Limitations [facility] Procedures Combined list of: 1) Procedures from Department of Veterans Affairs facilities going back up to thelast 18 months, not all [place] non-surgical procedures are included; 2) All procedures from the Department of Defense facilities. Procedure Procedure Type Code Date Perfomer Comments Sour e TYMPANOMETRY AND REFLEX THRESHOLD MEASUREMENTS 02/15/20 21 [facility] PHYS/OTH QUALIFIED HEALTH OPERATIONS SUPPORT SPECIALIST QUALIFIED,EDUCATIO N,TRAIN,LICENSURE/ REGULATION (WHEN APPLICABLE) EDUC SER RENDERED TO PATS IN A GRP SETTING (EG,,OBESI TY,OR DIABETIC INSTRUCT) 01/16/20 02 [facility] ADMINISTRATION OF PATIENT-FOCUSED HEALTH RISK ASSESSMENT INSTRUMENT (EG, HEALTH HAZARD APPRAISAL) WITH SCORING AND DOCUMENTATION, PER STANDARDIZED INSTRUMENT 02/12/20 19 [facility] Tympanometry With Reflex Threshold Measurements Tympanometry With Reflex Threshold Measurements [id number] IWLMA SCHMID Normal ME function, Au [facility] Comprehensive Audiometry Comprehensive Audiometry [id number] WILMA SCHMID [facility] Preventive Medicine Administration Of Health Risk Questionnaire Patient-Focused Preventive Medicine Administration Of Health Risk Questionnaire Patient-Focused [id number] CHIRAG BLANCO [facility] No data available for this section Ambulato [...] of Defense and Veterans Affairs (VA).VA Functional [place] Measurement (FIM) Scale: 1 = Total Assistance (Subject = 0% +), 2 = Maximal Assistance (Subject = 25% +), 3 = Moderate Assistance (Subject = 50% +), 4 = Minimal Assistance (Subject = 75% +), 5 = Supervision, 6 = Modified [place] (Device), 7 = Complete [place] (Timely, Safely). Assessment Date/Time Source Assessment Type Assessment Skill Assessment Score Assessment Details No data available for this section
== END 2024-05-11 06:31 | disposition home or self-care (01) ==
PROVIDERS: Emergency Provider Internal Medicine
DX: S22.32XA Fracture of one rib, left side, initial encounter for closed fracture (principal); R07.81 Pleurodynia; X58.XXXA Exposure to other specified factors, initial encounter; Y93.89 Activity, other specified; Y92.89 Other specified places as the place of occurrence of the external cause; Y99.8 Other external cause status
CPT/HCPCS: 71101; 99284